=== PATIENT | male | born 1980 | race Caucasian/White ===

== ENCOUNTER 2023-11-27 17:11 | Emergency (ER) | payer OTHER ==
[2023-11-27 17:31] VITALS: RESP 18; O2SAT 96
--- NOTE | 2023-11-27 18:00 | ERPHSYRPT ---
- History of Present Illness Time Seen by Provider: 11/27/23 17:50 Source: patient Exam Limitations: no limitations Patient Subjective Stated Complaint: pt states he was on the ladder and thinks he hyper extended his knee Triage Nursing Assessment: pt ambulated into the er; pt is axo x4; c/o left knee pain; no deformity present to left knee; no bruising or swelling present to left knee; strong left pedal pulse; good cap refill to left foot; skin PDW; vital wnl; no respiratory distress Physician History: Patient is a 43-year-old white male who was working on a ladder approximately a week ago and thinks he hyperextended his left knee. He complains of pain from the posterior thigh on to the leg almost to the foot. He has minimal swelling is full range of motion he is able to bear weight. Method of Injury: direct blow Occurred: last week Quality: aching, burning Severity of Pain-Max: moderate Severity of Pain-Current: moderate Lower Extremities Pain: knee: left Modifying Factors: Improves With: nothing Allergies/Adverse Reactions: No Known Drug Allergies Allergy (Unverified 11/27/23 17:16) Home Medications: Dextroamphetamine/Amphetamine [Adderall Xr 30 mg Capsule] 30 mg PO DAILY 11/27/23 [History] Trazodone HCl 50 mg [Desyrel 50 mg] 50 mg PO HS PRN 11/27/23 [History] Hx Tetanus, Diphtheria Vaccination/Date Given: No (unknown) Hx Influenza Vaccination/Date Given: No Hx Pneumococcal Vaccination/Date Given: No Immunizations Up to Date: No Travel Risk - International Travel Have you traveled outside of the country in past 3 weeks: No - Coronavirus Screening Are you exhibiting any of the following symptoms?: No Close contact with a COVID-19 positive Pt in past 14-21 Days: No - Vaccine Status Have you recieved a Covid-19 vaccination: No - Review of Systems Constitutional: No Fever, No Chills Eyes: No Symptoms Ears, Nose, & Throat: No Symptoms Respiratory: No Cough, No Dyspnea Cardiac: No Chest Pain, No Edema, No Syncope Abdominal/Gastrointestinal: No Abdominal Pain, No Nausea, No Vomiting, No Diarrhea Genitourinary Symptoms: No Dysuria Musculoskeletal: Joint Pain, No Back Pain, No Neck Pain Skin: No Rash Neurological: No Dizziness, No Focal Weakness, No Sensory Changes Psychological: No Symptoms Endocrine: No Symptoms All Other Systems: Reviewed and Negative - Past Medical History Pertinent Past Medical History: Yes Neurological History: No Pertinent History ENT History: No Pertinent History Cardiac History: High Cholesterol Respiratory History: No Pertinent History Endocrine Medical History: No Pertinent History Musculoskeletal History: No Pertinent History GI Medical History: GERD History: No Pertinent History Psycho-Social History: Attention Deficit Disorder, Depression Male Reproductive Disorders: No Pertinent History - Past Surgical History Past Surgical History: Yes Neuro Surgical History: No Pertinent History Cardiac: No Pertinent History Respiratory: No Pertinent History Gastrointestinal: Appendectomy Genitourinary: No Pertinent History Musculoskeletal: Orthopedic Surgery Male Surgical History: No Pertinent History Other Surgical History: mirela hip replacement, left jaw, rt knee - Social History Smoking Status: Current every day smoker How long have you smoked: 20 Exposure to second hand smoke: Yes Drug Use: none Patient Lives Alone: No - Nursing Vital Signs Nursing Vital Signs: Initial Vital Signs Pulse Rate 95 H 11/27/23 17:20 Respiratory Rate 18 11/27/23 17:20 Blood Pressure 134/90 11/27/23 17:20 O2 Sat by Pulse Oximetry 96 11/27/23 17:20 Pain Scale Pain Intensity 6 - Physical Exam General Appearance: no apparent distress, alert Eyes, Ears, Nose, Throat Exam: moist mucous membranes Neck Exam: non-tender, supple Cardiovascular/Respiratory Exam: chest non-tender, normal breath sounds, regular rate/rhythm, no respiratory distress Gastrointestinal/Abdominal Exam: non-tender, guarding Back Exam: normal inspection, No vertebral tenderness Hips Exam: bilateral: non-tender, normal inspection, normal range of motion Legs Exam: bilateral leg: non-tender, normal inspection, normal range of motion Knees Exam: left knee: pain, soft tissue tenderness, swelling (Minimal) Ankle Exam: bilateral ankle: non-tender, normal inspection, normal range of motion Foot Exam: bilateral foot: non-tender, normal inspection, normal range of motion Neuro/Tendon Exam: normal sensation, normal motor functions Mental Status Exam: alert, oriented x 3, cooperative Skin Exam: normal color, warm, dry SpO2 Interpretation: normal SpO2: 96 O2 Delivery: Room Air - Course Nursing assessment & vital signs reviewed: Yes - Radiology Exams Knee X-ray Interpretation: Interpreted by me, Negative Ordered Tests: Active Orders 24 hr Category Date Time Status KNEE (3 VIEWS) Stat Exams 11/27/23 17:34 Taken - Progress Progress: unchanged Medical Desision Making - Diagnostic Testing Radiological Interpretation: Interpreted by me - Risk of complications Minimal Risk: Minimal risk of morbidity - Departure Departure Disposition: Home Clinical Impression: Strain of left knee Condition: Stable Critical Care Time: No Referrals: ABHISHEK MIRELES NP [Primary Care Provider] - Follow up/PCP as directed Instructions: Knee Sprain (DC), Knee Pain (DC) Prescriptions: Diclofenac Sodium 50 mg [Voltaren 50 mg] 50 mg PO TID 10 Days #30 cap
[2023-11-27 18:07] VITALS: BP 122/77; PULSE 91
--- NOTE | 2023-11-28 08:53 | XRAY ---
Indication: Pain. No known injury. Comparison: None 3 view left knee demonstrates tiny nonspecific suprapatella effusion. No other bony, articular, or soft tissue abnormalities
== END 2023-11-27 18:13 | disposition home or self-care (01) ==
LOC: ED 17:11
DX: S83.92XA Sprain of unspecified site of left knee, initial encounter (principal); X50.9XXA Other and unspecified overexertion or strenuous movements or postures, initial encounter; E78.5 Hyperlipidemia, unspecified; Z79.899 Other long term (current) drug therapy; Z28.310 Unvaccinated for COVID-19; Z72.0 Tobacco use
CPT/HCPCS: 73562; 99283

== ENCOUNTER 2024-01-05 07:00 | Day surgery (SDC) | payer OTHER ==
[2024-01-05 07:15] VITALS: RESP 18
[2024-01-05] MEDS: CEFAZOLIN 2 GM-D5W BAG** 2 GM/50 ML ML IV SCH (07:29)
[2024-01-05] MEDS: Lactated Ringers 1,000 ML IV SCH (07:29)
[2024-01-05] MEDS: Transderm Scop 1.5MG Patch TOP ONE (07:30)
[2024-01-05] MEDS ORDERED: DIPRIVAN 200 MG/20 ML IV ONE (08:21)
[2024-01-05] MEDS ORDERED: Xylocaine-Mpf 2% 5 Ml Vial ONE (08:23)
[2024-01-05] MEDS ORDERED: Zofran 4 MG/2 ML VIAL ONE (08:23)
[2024-01-05] MEDS ORDERED: Decadron 4 MG INJ ONE (08:23)
[2024-01-05] MEDS ORDERED: SUBLIMAZE 100 MCG/2 ML ONE (08:25)
[2024-01-05] MEDS ORDERED: Versed 2 MG/2 ML Injection ONE (08:25)
[2024-01-05] MEDS ORDERED: Zemuron 100 MG/10 ML ONE (09:01)
[2024-01-05] MEDS ORDERED: Quelicin Fliptop 200 MG/10 ML ONE (09:01)
[2024-01-05] MEDS ORDERED: Pre-Attached Lta Kit TP ONE (09:02)
[2024-01-05] MEDS ORDERED: DEXMEDETOMIDINE 80 MCG/20ML-NS IV ONE (09:13)
[2024-01-05] MEDS ORDERED: Marcaine 0.5%/Epinephrine 10 ML ONE (09:27)
[2024-01-05] MEDS ORDERED: Lactated Ringers 1,000 ML IV ONE (09:45)
[2024-01-05 10:50] VITALS: TEMP 97.6; O2SAT 98
[2024-01-05 11:01] VITALS: BP 126/85; PULSE 55
--- NOTE | 2024-01-05 11:01 | OP ---
SURGERY DATE/TIME: 01/05/2024 PREOPERATIVE DIAGNOSES: 1) Torn left medial and lateral menisci. 2) Chronic partial tear of the ACL. POSTOPERATIVE DIAGNOSES: 1) Torn left lateral meniscus. 2) Large medial plica and partial tear of the ACL. PROCEDURES: 1) Arthroscopy of the left knee with partial lateral menisectomy. 2) Excision medial plica and limited debridement of the ACL. SURGEON: Reyes Lafleur II, D.O. GENERAL: General. DESCRIPTION OF PROCEDURE: The patient identified and informed consent obtained. The patient is taken to the operative suite and placed in supine position on the operating table where general anesthetic is administered. Once an appropriate level of anesthesia had been obtained, the tourniquet is placed high on the left thigh. The left lower extremity was then placed in a knee leo, prepped and draped in the usual sterile fashion. A standard time out was taken. At this point, the leg is exsanguinated and tourniquet elevated to 350 mm of Mercury. A standard infralateral portal is created with an 11 blade, trocar and cannula were then placed in the joint. The joint then distended with the arthroscopic pump. An inframedial portal created with an 11 blade after identifying the level with an 18 gauge spinal needle. The knee then inspected in a systematic fashion. The suprapatellar pouch had no loose bodies or synovial hypertrophy. The undersurface of the patella had no significant chondromalacia nor did the trocar groove and the patella seated nicely within the groove at about 30 degrees of flexion. The patient did have a very large thick and hypertrophic medial plica and with flexion and extension the plica was snapping over the medial femoral condyle. Utilizing a motorized shaver, the plica was excised. The scope is then placed into the medial compartment where the medial meniscus is probed throughout its entirety and noted to have no evidence of tears on either of the upper or the under surfaces nor were there any note of peripheral tear. At this point, the intercondylar notch region inspected and the anterior cruciate ligament noted to have some generalized laxity and fraying but no complete tear. The loose tissue was debrided and at this point the scope was placed into the lateral compartment where a degenerative complex tear of the anterior and middle horn of lateral meniscus is encountered resected with handheld and shaved until smooth transition with the shaver. The knee was then re-inspected and copiously irrigated. No further pathology identified. The instrumentation was removed and the portal sites closed with interrupted 4-0 Nylon suture. The knee was infiltrated with 30 cc of 0.5% Marcaine with epinephrine plain. Adaptic, 4x4 and a standard postoperative arthroscopy dressing applied. The patient was transferred to the cart and taken to the recovery room in satisfactory condition. He tolerated the procedure well.
== END 2024-01-05 11:18 | disposition home or self-care (01) ==
LOC: SDC 07:00
PROVIDERS: ATTEND Orthopaedic Surgery
DX: S83.242A Other tear of medial meniscus, current injury, left knee, initial encounter (principal); S83.282A Other tear of lateral meniscus, current injury, left knee, initial encounter; S83.512A Sprain of anterior cruciate ligament of left knee, initial encounter
CPT/HCPCS: J0330; J0690; J1100; J2250; J2405; J2704; J3010; A9270-GY